=== PATIENT | male | born 1975 | race Caucasian/White ===

== ENCOUNTER 2025-01-21 19:06 | Emergency (ER) | payer OTHER ==
[~2025-01-21] VITALS: Ht 177.8 cm; Wt 100.0 kg
[2025-01-21 19:08] VITALS: O2SAT 98
[2025-01-21 19:20] VITALS: TEMP 36.9
[2025-01-21] MEDS ORDERED: ONDANSETRON HCL 4MG/2ML INJ IV ONE (19:30)
[2025-01-21] MEDS: SODIUM CHLORIDE 0.9% 1,000 ML IV ONE (21:34)
[2025-01-21 21:37] LABS: HEMATOCRIT. 47.7 % (42.0-52.0); HEMOGLOBIN. 16.2 g/dL (14.0-18.0); RED BLOOD CELL COUNT 5.23 mill/uL (4.7-6.1); RED CELL DISTRIBUTION WIDTH 12.8 % (11.6-14.6)
[2025-01-21] MEDS: ONDANSETRON HCL 4MG/2ML INJ IV SCH (21:38)
[2025-01-21 21:49] LABS: CREATININE 1.0 mg/dL (0.6-1.3)
[2025-01-21 21:50] LABS: PROTEIN TOTAL 6.4 g/dL (6.0-8.3); UREA NITROGEN BLOOD 11 mg/dL (9-23)
[2025-01-21 21:51] LABS: ASPARTATE AMINOTRANSFERASE 34 IU/L (<34)
[2025-01-21 21:52] LABS: BILIRUBIN DIRECT 0.8 mg/dL (<=3.0); BILIRUBIN TOTAL 2.5 mg/dL (0.1-1.0)
[2025-01-21 21:59] LABS: LYMPHOCYTES % MANUAL 3.0 % (20.0-50.0); MONOCYTES % MANUAL 2.0 % (2.0-8.0); NEUTROPHILS % MANUAL 95.0 % (45.0-75.0); PLATELET ESTIMATE NORMAL
[2025-01-21 22:06] LABS: PLATELET 170 x1000/uL (130-400)
[2025-01-21 22:07] LABS: MEAN PLATELET VOLUME 7.8 fl (7.4-10.4)
[2025-01-21] MEDS ORDERED: FAMO-135 MT (22:19)
[2025-01-21] MEDS ORDERED: MAG355OR21 MT (22:19)
[2025-01-21] MEDS ORDERED: PHEN51CR24 TP (22:19)
[2025-01-21 23:25] VITALS: BP 116/59; PULSE 98; RESP 16; O2SAT 97
== END 2025-01-21 23:30 | disposition home or self-care (01) ==
LOC: ER 19:06
DX: K52.9 Noninfective gastroenteritis and colitis, unspecified (principal); K60.2 Anal fissure, unspecified; Z79.899 Other long term (current) drug therapy
CPT/HCPCS: 99284; 96374; 96361; 96375; 80076; 80048; 83690; 83735; 85025; 36415; J2405; J7030